=== PATIENT | female | born 2000 | race African-American/Black ===

== ENCOUNTER 2020-10-31 09:24 | Emergency (ER) | payer MEDICAID, OTHER ==
[~2020-10-31] VITALS: Ht 144.8 cm; Wt 100.0 kg
[2020-10-31] MEDS ORDERED: KETOROLAC 60MG/2ML VIAL IM ONE (10:00)
[2020-10-31 10:11] VITALS: BP 126/69
[2020-10-31] MEDS ORDERED: IBUP-2029 MT (11:42)
== END 2020-10-31 11:58 | disposition home or self-care (01) ==
LOC: ER 09:24
DX: S93.491A Sprain of other ligament of right ankle, initial encounter (principal); F12.10 Cannabis abuse, uncomplicated; V43.52XA Car driver injured in collision with other type car in traffic accident, initial encounter; Y93.89 Activity, other specified; Y92.488 Other paved roadways as the place of occurrence of the external cause
CPT/HCPCS: 29515; 73610; 73630; 96372; 99284; J1885